=== PATIENT | female | born 1945 | race Hispanic/Latino ===

== ENCOUNTER 2018-11-13 19:57 | Emergency (ER) | payer OTHER, MEDICARE ==
[~2018-11-13 19:57] MED LIST: ENAL20TA PO; ESOM40CA54 PO; FERS325 PO; FLUO-125 PO; GLIP5TAB11 PO; HYDR25TA PO; LOVA10TA2 PO; METO100T14 PO; TRAM50TA4 PO
[2018-11-13] MEDS ORDERED: IBUPROFEN 600 MG TABLET ONE (20:29)
[2018-11-13] MEDS ORDERED: TETANUS/DIPHTHERIA TOXOID [ADULT] 0.5 ML VIAL IM ONE (20:30)
== END 2018-11-13 21:45 | disposition home or self-care (01) ==
LOC: EDH 19:57
DX: S61.313A Laceration without foreign body of left middle finger with damage to nail, initial encounter (principal); E11.9 Type 2 diabetes mellitus without complications; E78.5 Hyperlipidemia, unspecified; I10 Essential (primary) hypertension; W26.0XXA Contact with knife, initial encounter; Y93.G3 Activity, cooking and baking; Y92.89 Other specified places as the place of occurrence of the external cause; Y99.8 Other external cause status
CPT/HCPCS: 73140; 90471; 90714

== ENCOUNTER 2019-10-13 10:51 | Observation (INO) | payer OTHER, MEDICARE ==
[~2019-10-13] VITALS: Ht 152.4 cm; Wt 96.8 kg
[~2019-10-13 10:51] MED LIST changes: -FLUO-125 PO; +FLUO10CA22 PO
[2019-10-13] MEDS ORDERED: ASPIRIN 325 MG TABLET ONE (11:33)
[2019-10-13] MEDS ORDERED: NITROGLYCERIN 1GM/1 INCH PACKET TD ONE (12:19)
[2019-10-13] MEDS ORDERED: FUROSEMIDE 10 MG/ML 4ML VIAL ONE (12:20)
[2019-10-13 12:33] LABS: CREATININE 0.7 mg/dL (0.5-1.5); INR 1.01 (0.85-1.15); PARTIAL THROMBOPLASTIN TIME 28.2 SEC (26.3-35.5); POTASSIUM 3.4 mmol/L (3.5-5.1); PROTHROMBIN TIME 10.6 SEC (9.6-11.6)
[2019-10-13 12:34] LABS: APPEARANCE,URINE Clear (CLEAR); BILIRUBIN,URINE Negative (NEGATIVE); COLOR,URINE Yellow (YELLOW); GLUCOSE, URINE (UA) Negative (NEGATIVE); KETONES,URINE Negative (NEGATIVE); LEUKOCYTE ESTERASE ,URINE Trace (NEGATIVE); NITRATE,URINE Negative (NEGATIVE); OCCULT BLOOD,URINE Negative (NEGATIVE); PH,URINE 7.5 (5.0-8.0); PROTEIN,URINE POS 1+ mg/dL (NEGATIVE); UROBILINOGEN,URINE 0.2 mg/dL (0.2-1.0)
[2019-10-13 12:37] LABS: ALBUMIN 3.3 g/dL (3.5-5.0); BILIRUBIN,TOTAL 0.3 mg/dL (0.2-1.0); TOTAL PROTEIN, SERUM 7.3 g/dL (6.0-8.3)
[2019-10-13 12:50] LABS: B-TYPE NATRIURETIC PEPTIDE 238 pg/mL (0-100)
[2019-10-13 13:01] LABS: BASOPHILS % (AUTO) 0.6 % (0.0-5.0); EOSINOPHILS % (AUTO) 3.4 % (0.0-8.0); HEMATOCRIT 30.5 % (36-48); LYMPHOCYTES % (AUTO) 23.6 % (21.0-51.0); MEAN CORPUSCULAR HEMOGLOBIN 29.9 pg (27.0-33.0); MEAN CORPUSCULAR HGB CONC 31.5 g/dL (32.0-36.0); MONOCYTES % (AUTO) 6.1 % (3.0-13.0); NEUTROPHILS % (AUTO) 65.7 % (40.0-77.0); PLATELET COUNT (AUTO) 208 K/uL (130-400); RED BLOOD CELL COUNT(AUTO) 3.21 MIL/uL (4.00-5.50); RED CELL DISTRIBUTION WIDTH 13.6 % (11.0-15.5); WHITE BLOOD COUNT (AUTO) 8.9 K/uL (4.8-10.8)
[2019-10-13 13:33] LABS: BACTERIA,URINE Rare /HPF (None Seen); RBC,URINE 0-1 /HPF (0-1); WBC,URINE 0-1 /HPF (0-1)
[2019-10-13] MEDS ORDERED: ONDANSETRON HCL 4 MG/2 ML VIAL IVP PRN (15:45)
[2019-10-13] MEDS ORDERED: IPRATROPIUM/ALBUTEROL SULFATE 3 ML SOLUTION IH PRN (15:45)
[2019-10-13] MEDS ORDERED: ZOLPIDEM TARTRATE 5 MG TAB PO PRN (15:45)
[2019-10-13] MEDS ORDERED: LACTULOSE 20 GM/30 ML UDCUP PO PRN (15:45)
[2019-10-13] MEDS ORDERED: ACETAMINOPHEN-CODEINE 300/30MG TAB PO PRN (15:45)
[2019-10-13 16:00] VITALS: BP 173/71
[2019-10-13] MEDS: NITROGLYCERIN 1GM/1 INCH PACKET TD SCH ×3 (16:31→23:25)
[2019-10-13] MEDS: HYDRALAZINE HCL 20 MG/ML VIAL IV PRN (16:34)
[2019-10-13] MEDS: ACETAMINOPHEN-CODEINE 300/30MG TAB PO PRN ×2 (16:36→17:59)
[2019-10-13] MEDS ORDERED: ATOR40TA71 PO (16:51)
[2019-10-13] MEDS ORDERED: GLIP5TAB11 PO (16:51)
[2019-10-13] MEDS ORDERED: PANT40TA25 PO (16:51)
[2019-10-13] MEDS ORDERED: GABA-529 PO (16:51)
[2019-10-13] MEDS ORDERED: LINA290C PO (16:51)
[2019-10-13] MEDS ORDERED: SUCR1TAB2 PO (16:51)
[2019-10-13] MEDS ORDERED: ALEN70TA10 PO (16:51)
[2019-10-13] MEDS ORDERED: NITROGLYCERIN 0.4 MG SL TAB SL ONE (17:47)
--- NOTE | 2019-10-13 18:37 | NUR ---
SPOKE WITH DR. ERVIN ABOUT NEW CONSULT INFORMED MD ABOUT CHEST PAIN EPISODE NOW BETTER AFTER 2 DOSES OF TYLENOL 3. BP ALSO BETTER AFTER HYDRALAZINE IV DOSE. MD ORDERED TO DRAW ANOTHER CARDIAC PANEL AND KEEP PATIENT NPO AFTER MIDNIGHT.
[2019-10-13] MEDS ORDERED: NITROGLYCERIN 0.4 MG SL TAB SL PRN (19:00)
[2019-10-13 19:36] VITALS: BP 159/67
[2019-10-13 19:56] LABS: CREATINE KINASE, TOTAL 108 U/L (21-232); MYOGLOBIN 52 ng/mL (10-92); TROPONIN I < 0.04 ng/mL (0.00-0.06)
[2019-10-13] MEDS: ENALAPRIL MALEATE 10 MG TABLET PO SCH (20:20)
[2019-10-13] MEDS: ATORVASTATIN CALCIUM 10 MG TABLET PO SCH (20:21)
[2019-10-13] MEDS: METOPROLOL TARTRATE 50 MG TAB PO SCH (20:21)
[2019-10-13] MEDS ORDERED: POTASSIUM CHLORIDE 10% ELIXIR 20 MEQ/15 ML UDCUP PO PRN (21:15)
[2019-10-13] MEDS ORDERED: POTASSIUM CHLORIDE 20MEQ/100ML 100 ML IV PRN (21:15)
[2019-10-13] MEDS ORDERED: LIDOCAINE HCL-MPF 1% 2ML VIAL IV PRN (21:15)
[2019-10-13] MEDS: POTASSIUM CHLORIDE 20 MEQ ERTAB PO PRN (21:31)
[2019-10-13 23:55] VITALS: BP 102/45
[2019-10-14 03:46] VITALS: BP 107/44
[2019-10-14 04:17] LABS: HEMATOCRIT 29.6 % (36-48); MEAN CORPUSCULAR HEMOGLOBIN 29.8 pg (27.0-33.0); MEAN CORPUSCULAR HGB CONC 31.8 g/dL (32.0-36.0); PLATELET COUNT (AUTO) 183 K/uL (130-400); RED BLOOD CELL COUNT(AUTO) 3.15 MIL/uL (4.00-5.50); RED CELL DISTRIBUTION WIDTH 13.8 % (11.0-15.5); WHITE BLOOD COUNT (AUTO) 9.6 K/uL (4.8-10.8)
[2019-10-14 04:23] VITALS: BP 147/59
[2019-10-14 04:34] LABS: ALBUMIN 3.2 g/dL (3.5-5.0); BILIRUBIN,TOTAL 0.3 mg/dL (0.2-1.0); CREATININE 0.8 mg/dL (0.5-1.5); MAGNESIUM 1.8 mg/dL (1.80-2.40); PHOSPHORUS 3.1 mg/dL (2.5-4.9)
[2019-10-14 04:46] LABS: POTASSIUM 2.9 mmol/L (3.5-5.1)
[2019-10-14] MEDS: POTASSIUM CHLORIDE 20 MEQ ERTAB PO PRN ×3 (04:51→09:26)
[2019-10-14] MEDS ORDERED: ACETAMINOPHEN 325 MG TAB ONE (05:58)
[2019-10-14] MEDS ORDERED: ACETAMINOPHEN 325 MG TAB PO PRN (06:00)
[2019-10-14 07:39] VITALS: BP 157/62
[2019-10-14] MEDS ORDERED: PANTOPRAZOLE 40 MG/VIAL IVP SCH (09:00)
[2019-10-14] MEDS ORDERED: HYDROCHLOROTHIAZIDE 25 MG TABLET PO SCH (09:00)
[2019-10-14] MEDS: METOPROLOL TARTRATE 50 MG TAB PO SCH ×2 (09:24→20:39)
[2019-10-14] MEDS: FERROUS SULFATE 325 MG TABLET.DR PO SCH (09:25)
[2019-10-14] MEDS: ENALAPRIL MALEATE 10 MG TABLET PO SCH ×2 (09:25→20:39)
[2019-10-14] MEDS ORDERED: PANTOPRAZOLE SODIUM 40 MG TABLET.DR ONE (09:29)
[2019-10-14] MEDS: PANTOPRAZOLE SODIUM 40 MG TABLET.DR PO SCH (09:31)
[2019-10-14] MEDS: ENOXAPARIN SODIUM 30 MG/0.3 ML SQ SCH (10:53)
[2019-10-14 11:46] VITALS: BP 184/75
[2019-10-14] MEDS: HYDRALAZINE HCL 20 MG/ML VIAL IV PRN (12:10)
[2019-10-14] MEDS ORDERED: REGADENOSON 0.4 MG/5 ML PF SYG IVP SCH (13:30)
[2019-10-14 15:32] VITALS: BP 149/55
[2019-10-14] MEDS: FUROSEMIDE 10 MG/ML 4ML VIAL IV SCH (15:33)
[2019-10-14] MEDS: NITROGLYCERIN 1GM/1 INCH PACKET TD SCH ×2 (15:33→23:25)
[2019-10-14 19:22] VITALS: BP 132/67
[2019-10-14] MEDS: ATORVASTATIN CALCIUM 10 MG TABLET PO SCH (20:39)
[2019-10-15] MEDS: FUROSEMIDE 10 MG/ML 4ML VIAL IV SCH (00:38)
[2019-10-15 00:42] VITALS: BP 177/71
[2019-10-15 01:53] VITALS: BP 154/64
[2019-10-15] MEDS: ACETAMINOPHEN-CODEINE 300/30MG TAB PO PRN (03:19)
[2019-10-15 04:27] LABS: HEMATOCRIT 31.5 % (36-48); MEAN CORPUSCULAR HEMOGLOBIN 29.6 pg (27.0-33.0); MEAN CORPUSCULAR HGB CONC 31.4 g/dL (32.0-36.0); PLATELET COUNT (AUTO) 215 K/uL (130-400); RED BLOOD CELL COUNT(AUTO) 3.35 MIL/uL (4.00-5.50); RED CELL DISTRIBUTION WIDTH 13.9 % (11.0-15.5); WHITE BLOOD COUNT (AUTO) 11.1 K/uL (4.8-10.8)
--- NOTE | 2019-10-15 04:31 | NUR ---
Report given to Dimitrios foster. Will transfer patient via stretcher. Patient stable, alert X3. No issues noted.
[2019-10-15 04:50] LABS: CREATININE 0.9 mg/dL (0.5-1.5); MAGNESIUM 1.8 mg/dL (1.80-2.40); PHOSPHORUS 2.6 mg/dL (2.5-4.9); POTASSIUM 3.3 mmol/L (3.5-5.1)
--- NOTE | 2019-10-15 04:50 | NUR ---
transfer from [facility] RECEIVED FROM [facility] PER W/C ACCOMPANIED BY ANH,AAAOX3, DENIES ACUTE PAIN OR DISCOMFORT, ORIENTED TO ROOM,PLAN OF CARE DISCUSSED, VERBALIZES UNDERSTANDING Addendum: 10/15/19 at 0509 by KAITLIN ARNOLD RN RN Amended: Links added.
[2019-10-15 05:10] VITALS: BP 151/60
[2019-10-15] MEDS ORDERED: MAGNESIUM 2GM PREMIX 50ML 50 ML IV PRN (05:15)
[2019-10-15] MEDS: POTASSIUM CHLORIDE 20 MEQ ERTAB PO PRN (05:26)
[2019-10-15 07:58] VITALS: BP 143/50
[2019-10-15] MEDS: PANTOPRAZOLE SODIUM 40 MG TABLET.DR PO SCH (10:27)
[2019-10-15] MEDS: NITROGLYCERIN 1GM/1 INCH PACKET TD SCH (10:28)
[2019-10-15] MEDS: METOPROLOL TARTRATE 50 MG TAB PO SCH (10:28)
[2019-10-15] MEDS: ENALAPRIL MALEATE 10 MG TABLET PO SCH (10:28)
[2019-10-15] MEDS: FERROUS SULFATE 325 MG TABLET.DR PO SCH (10:28)
[2019-10-15] MEDS: ENOXAPARIN SODIUM 30 MG/0.3 ML SQ SCH (10:29)
[2019-10-15 11:04] VITALS: BP 155/76
[2019-10-15] MEDS ORDERED: AMLO5TAB4 PO (12:25)
== END 2019-10-15 12:50 | disposition home or self-care (01) ==
LOC: EDH 10:51 → EDHIP 14:38 → 2DH 15:39 → 3CH 10-15 04:36
PROVIDERS: ADMIT Internal Medicine Critical Care Medicine; ATTEND Internal Medicine Critical Care Medicine
DX: I16.0 Hypertensive urgency (principal); E11.9 Type 2 diabetes mellitus without complications; E78.5 Hyperlipidemia, unspecified; I20.0 Unstable angina; D63.8 Anemia in other chronic diseases classified elsewhere; E66.01 Morbid (severe) obesity due to excess calories; I11.0 Hypertensive heart disease with heart failure; I50.31 Acute diastolic (congestive) heart failure; E44.1 Mild protein-calorie malnutrition; N28.9 Disorder of kidney and ureter, unspecified; Z96.653 Presence of artificial knee joint, bilateral
CPT/HCPCS: 36415 ×3; 71045 ×3; 80048; 80053 ×2; 81001; 82550 ×2; 82948 ×4; 83735 ×2; 83874; 83880; 84100 ×2; 84132; 84484 ×2; 85025; 85027 ×2; 85610; 85730; 93005 ×2; 93306; 94640; 94664; 96365; 96366; 96372 ×2; 96375 ×2; 96376 ×2; 97116; 97161; 99285; G0378 ×23; G8978; G8979; G8980; G8981; G8982; G8983; J0360 ×3; J1650 ×2; J1940 ×3; J2785; J3475; J3480; J3490; C9113

== ENCOUNTER 2022-12-05 13:23 | Emergency (ER) | payer OTHER, MEDICARE ==
[~2022-12-05] VITALS: Ht 154.9 cm; Wt 90.7 kg
[~2022-12-05 13:23] MED LIST changes: +ALEN70TA80 PO; +AMLO5TAB4 PO; +ATOR40TA71 PO; +ENAL-91 PO; -ENAL20TA PO; -FLUO10CA22 PO; +FLUO10CA24 PO; +GABA-529 PO; +LINA290C PO; +PANT40TA54 PO; +SUCR1TAB2 PO
[2022-12-05 13:26] VITALS: BP 179/61
[2022-12-05] MEDS ORDERED: MORPHINE 4 MG SYG IVP ONE (14:00)
[2022-12-05 15:05] LABS: BASOPHILS % (AUTO) 0.2 % (0.0-5.0); EOSINOPHILS % (AUTO) 1.7 % (0.0-8.0); HEMATOCRIT 33.9 % (36-48); LYMPHOCYTES % (AUTO) 17.9 % (21.0-51.0); MEAN CORPUSCULAR HGB CONC 31.6 g/dL (32.0-36.0); MEAN CORPUSCULAR VOLUME 91.9 fL (79-99); MONOCYTES % (AUTO) 6.5 % (3.0-13.0); NEUTROPHILS % (AUTO) 73.3 % (40.0-77.0); PLATELET COUNT (AUTO) 186 K/uL (130-400); RED BLOOD CELL COUNT(AUTO) 3.69 MIL/uL (4.00-5.50); RED CELL DISTRIBUTION WIDTH 14.7 % (11.0-15.5); WHITE BLOOD COUNT (AUTO) 10.2 K/uL (4.8-10.8)
[2022-12-05] MEDS ORDERED: NAPR500T6 PO (15:29)
[2022-12-05 15:33] LABS: CREATININE 0.8 mg/dL (0.5-1.5)
[2022-12-05 15:38] LABS: ALBUMIN 3.2 g/dL (3.5-5.0); TOTAL PROTEIN, SERUM 7.4 g/dL (6.0-8.3)
== END 2022-12-05 15:42 | disposition home or self-care (01) ==
LOC: EDH 13:23
DX: M25.552 Pain in left hip (principal); M79.605 Pain in left leg; I10 Essential (primary) hypertension; E11.9 Type 2 diabetes mellitus without complications; E78.00 Pure hypercholesterolemia, unspecified; Z79.84 Long term (current) use of oral hypoglycemic drugs; Z79.899 Other long term (current) drug therapy
CPT/HCPCS: 99285; 96374; 72192; 80053; 85025; 83605; 36415; 73552; J2270; 96375

== ENCOUNTER → 2023-09-26 | Outpatient (CLI) | payer OTHER, MEDICARE ==
[~2023-09-26] MED LIST changes: -GLIP5TAB11 PO; +GLIP5TAB15 PO; +NAPR500T6 PO
[2023-09-26] MEDS: REGADENOSON 0.4 MG/5 ML PF SYG IVP ONE (14:21)
== END | disposition home or self-care (01) ==
LOC: SHCH 09:00
PROVIDERS: ATTEND Internal Medicine
DX: I48.91 Unspecified atrial fibrillation (principal); R94.31 Abnormal electrocardiogram [ECG] [EKG]; R07.89 Other chest pain
CPT/HCPCS: 78452; 96374; 93017; J2785; A9500 ×2

== ENCOUNTER 2023-11-17 15:16 | Emergency (ER) | payer OTHER, MEDICARE ==
[~2023-11-17] VITALS: Ht 152.4 cm; Wt 89.8 kg
[2023-11-17] MEDS: METOCLOPRAMIDE 10 MG/2 ML VIAL IVP ONE (15:57)
[2023-11-17] MEDS: MORPHINE 2 MG SYG IVP ONE (15:58)
[2023-11-17 17:00] LABS: HEMATOCRIT 34.4 % (36-48); MEAN CORPUSCULAR HEMOGLOBIN 28.2 pg (27.0-33.0); MEAN CORPUSCULAR HGB CONC 31.7 g/dL (32.0-36.0); MEAN CORPUSCULAR VOLUME 88.9 fL (79-99); RED BLOOD CELL COUNT(AUTO) 3.87 MIL/uL (4.00-5.50); RED CELL DISTRIBUTION WIDTH 16.5 % (11.0-15.5); WHITE BLOOD COUNT (AUTO) 9.5 K/uL (4.8-10.8)
[2023-11-17 17:12] LABS: CREATININE 0.9 mg/dL (0.5-1.0); POTASSIUM 3.2 mmol/L (3.5-5.1)
[2023-11-17 17:51] LABS: MAGNESIUM 1.8 mg/dL (1.80-2.40); THYROID STIMULATING HORMONE 1.97 uIU/mL (0.36-3.74)
[2023-11-17 18:34] VITALS: BP 178/65; PULSE 70; RESP 16; O2SAT 99
== END 2023-11-17 20:00 | disposition home or self-care (01) ==
LOC: EDH 15:16
DX: R51.9 Headache, unspecified (principal); I10 Essential (primary) hypertension; E11.9 Type 2 diabetes mellitus without complications; E78.00 Pure hypercholesterolemia, unspecified; I48.91 Unspecified atrial fibrillation; Z79.899 Other long term (current) drug therapy; Z98.890 Other specified postprocedural states
CPT/HCPCS: 99285; 70450; 96374; 71045; 96375; 84443; 83735; 80048; 85027; 36415; 73562; 72170; 72125; J2270; J2765

== ENCOUNTER 2023-12-09 10:27 | Day surgery (SDC) | payer OTHER, MEDICARE ==
[~2023-12-09] VITALS: Ht 152.4 cm; Wt 93.4 kg
[2023-12-09 11:22] VITALS: BP 159/77; PULSE 78; RESP 14
[2023-12-09] MEDS ORDERED: METOCLOPRAMIDE 10 MG/2 ML VIAL ONE (11:49)
[2023-12-09] MEDS ORDERED: VALS80TA30 PO (11:54)
[2023-12-09] MEDS ORDERED: ERGO500093 PO (11:54)
[2023-12-09] MEDS ORDERED: METO-408 PO (11:54)
[2023-12-09] MEDS ORDERED: FLUO40CA7 PO (11:54)
[2023-12-09] MEDS ORDERED: FAMO40TA7 PO (11:54)
[2023-12-09] MEDS ORDERED: FURO20TA4 PO (11:54)
[2023-12-09] MEDS ORDERED: GLIP5TAB15 PO (11:54)
[2023-12-09] MEDS: 0.9%NACL 1000ML 1,000 ML IV ONE (11:56)
[2023-12-09] MEDS ORDERED: PROPOFOL 10 MG/ML 20ML VIAL IV ONE (12:56)
== END 2023-12-09 14:30 | disposition home or self-care (01) ==
LOC: DAH 10:27 → ENDO 10:27
PROVIDERS: ATTEND Internal Medicine Gastroenterology
DX: K92.1 Melena (principal); R10.13 Epigastric pain; K57.30 Diverticulosis of large intestine without perforation or abscess without bleeding; K29.70 Gastritis, unspecified, without bleeding; K44.9 Diaphragmatic hernia without obstruction or gangrene; K22.89 Other specified disease of esophagus; K21.9 Gastro-esophageal reflux disease without esophagitis; K59.04 Chronic idiopathic constipation; K76.0 Fatty (change of) liver, not elsewhere classified; R10.30 Lower abdominal pain, unspecified; E66.9 Obesity, unspecified; I10 Essential (primary) hypertension; E11.9 Type 2 diabetes mellitus without complications; F32.A Depression, unspecified; M81.0 Age-related osteoporosis without current pathological fracture; F41.9 Anxiety disorder, unspecified; E78.5 Hyperlipidemia, unspecified; I25.10 Atherosclerotic heart disease of native coronary artery without angina pectoris; Z86.73 Personal history of transient ischemic attack (TIA), and cerebral infarction without residual deficits; Z90.49 Acquired absence of other specified parts of digestive tract; Z98.891 History of uterine scar from previous surgery; Z98.890 Other specified postprocedural states; Z86.010 Personal history of colon polyps; Z68.41 Body mass index [BMI] 40.0-44.9, adult; Z79.899 Other long term (current) drug therapy; Z79.01 Long term (current) use of anticoagulants
CPT/HCPCS: 82948 ×2; 43239; 45385; J7030 ×2; J2704; J2765; A4620; A4215 ×2; A4223; A7002; A4222; A4221; A4663; A4606; J3490

== ENCOUNTER 2023-12-13 20:55 | Emergency (ER) | payer OTHER, MEDICARE ==
[~2023-12-13] VITALS: Ht 152.4 cm; Wt 86.2 kg
[~2023-12-13 20:55] MED LIST changes: -ALEN70TA80 PO; -AMLO5TAB4 PO; -ENAL-91 PO; +ERGO500093 PO; -ESOM40CA54 PO; +FAMO40TA7 PO; -FLUO10CA24 PO; +FLUO40CA7 PO; +FURO20TA4 PO; -GABA-529 PO; -HYDR25TA PO; -LINA290C PO; -LOVA10TA2 PO; +METO-408 PO; -METO100T14 PO; -NAPR500T6 PO; -SUCR1TAB2 PO; -TRAM50TA4 PO; +VALS80TA30 PO
[2023-12-13 21:40] LABS: BASOPHILS # (AUTO) 0.04 K/uL (0.00-0.20); BASOPHILS % (AUTO) 0.4 % (0.0-5.0); EOSINOPHILS # (AUTO) 0.15 K/uL (0.00-0.70); EOSINOPHILS % (AUTO) 1.5 % (0.0-8.0); HEMATOCRIT 36.2 % (36-48); IMMATURE GRANULOCYTE ABSOLUTE 0.04 K/uL (0-1); LYMPHOCYTES # (AUTO) 1.3 K/uL (1.0-4.8); MEAN CORPUSCULAR HEMOGLOBIN 28.2 pg (27.0-33.0); MEAN CORPUSCULAR HGB CONC 31.8 g/dL (32.0-36.0); MEAN CORPUSCULAR VOLUME 88.7 fL (79-99); MONOCYTES # (AUTO) 0.6 K/uL (0.1-1.0); MONOCYTES % (AUTO) 5.9 % (3.0-13.0); NEUTROPHILS # (AUTO) 8.1 K/uL (1.8-7.7); NEUTROPHILS % (AUTO) 78.8 % (40.0-77.0); PLATELET COUNT (AUTO) 230 K/uL (130-400); RED BLOOD CELL COUNT(AUTO) 4.08 MIL/uL (4.00-5.50); RED CELL DISTRIBUTION WIDTH 16.3 % (11.0-15.5); WHITE BLOOD COUNT (AUTO) 10.3 K/uL (4.8-10.8)
[2023-12-13 21:56] LABS: BILIRUBIN,TOTAL 0.3 mg/dL (0.2-1.0); CREATININE 0.8 mg/dL (0.5-1.0); TOTAL PROTEIN, SERUM 7.1 g/dL (6.0-8.3)
[2023-12-13 21:58] LABS: POTASSIUM 2.5 mmol/L (3.5-5.1)
[2023-12-13] MEDS ORDERED: MELO10CA3 PO (22:16)
[2023-12-13] MEDS: POTASSIUM BICARB/CIT AC 25 MEQ TABLET.EFF PO ONE (22:28)
[2023-12-13] MEDS: HYDRALAZINE 20MG/ML VIAL IV ONE (22:44)
[2023-12-13 22:51] LABS: SARS-CoV-2, RNA, NAAT NEGATIVE SARS CoV-2 (NEGATIVE)
[2023-12-13 22:52] LABS: INFLUENZA TYPE A NEGATIVE FOR TYPE A (NEG)
[2023-12-13 22:53] LABS: INFLUENZA TYPE B NEGATIVE FOR TYPE B (NEG)
[2023-12-14] MEDS: HYDROCODONE/ACETAMINOPHEN 5/325 MG TAB PO ONE (00:01)
[2023-12-14 03:57] VITALS: BP 143/54; PULSE 68; RESP 16; O2SAT 97
[2023-12-14 06:38] LABS: APPEARANCE,URINE CLOUDY (CLEAR); BILIRUBIN,URINE NEGATIVE (NEGATIVE); COLOR,URINE YELLOW (YELLOW); GLUCOSE, URINE (UA) NEGATIVE (NEGATIVE); KETONES,URINE 5 mg/dL (NEGATIVE); LEUKOCYTE ESTERASE ,URINE 75 Leu/uL (NEGATIVE); NITRATE,URINE NEGATIVE (NEGATIVE); OCCULT BLOOD,URINE NEGATIVE (NEGATIVE); PH,URINE 6.5 (5.0-8.0); PROTEIN,URINE 70 mg/dL (NEGATIVE); UROBILINOGEN,URINE 3 mg/dL (0.2-1.0)
[2023-12-14 06:45] LABS: ADD UA MICROSCOPIC YES
[2023-12-14 06:48] LABS: BACTERIA,URINE MOD /HPF (None Seen); MUCUS,URINE FEW LPF (None Seen); SQUAMOUS EPITHELIAL CELL,UR RARE /HPF (0-2)
== END 2023-12-14 08:00 | disposition home or self-care (01) ==
LOC: EDH 20:55
DX: M79.601 Pain in right arm (principal); E87.6 Hypokalemia; I10 Essential (primary) hypertension; E11.9 Type 2 diabetes mellitus without complications; I48.91 Unspecified atrial fibrillation; Z79.1 Long term (current) use of non-steroidal anti-inflammatories (NSAID); Z79.84 Long term (current) use of oral hypoglycemic drugs; Z79.899 Other long term (current) drug therapy; Z20.822 Contact with and (suspected) exposure to COVID-19
CPT/HCPCS: 99285; 96374; 70450; 87635; 80053; 85025; 87077; 87088; 87186; 87804 ×2; 81001; 36415; 73100; 73090; 73060; J0360

== ENCOUNTER → 2024-05-08 | Outpatient (CLI) | payer OTHER, MEDICARE ==
[~2024-05-08] MED LIST changes: +DOCU100C33 PO; +FERR-72 PO; +MELO10CA3 PO; +TIMO1DRO2 OP; +VALS40TA11 PO
== END | disposition home or self-care (01) ==
LOC: RAH 08:39
PROVIDERS: ATTEND Internal Medicine
DX: M85.89 Other specified disorders of bone density and structure, multiple sites (principal); M81.0 Age-related osteoporosis without current pathological fracture
CPT/HCPCS: 77080

== ENCOUNTER 2024-05-09 17:33 | Observation (INO) | payer OTHER, MEDICARE ==
[~2024-05-09] VITALS: Ht 152.4 cm; Wt 89.9 kg
[~2024-05-09 17:33] MED LIST changes: -DOCU100C33 PO; -FERR-72 PO; -TIMO1DRO2 OP; -VALS40TA11 PO
[2024-05-09 18:27] LABS: BASOPHILS # (AUTO) 0.04 K/uL (0.00-0.20); BASOPHILS % (AUTO) 0.4 % (0.0-5.0); EOSINOPHILS # (AUTO) 0.22 K/uL (0.00-0.70); HEMATOCRIT 38.5 % (36-48); IMMATURE GRANULOCYTE ABSOLUTE 0.04 K/uL (0-1); LYMPHOCYTES # (AUTO) 1.1 K/uL (1.0-4.8); LYMPHOCYTES % (AUTO) 10.1 % (21.0-51.0); MEAN CORPUSCULAR HEMOGLOBIN 30.5 pg (27.0-33.0); MEAN CORPUSCULAR HGB CONC 32.2 g/dL (32.0-36.0); MEAN CORPUSCULAR VOLUME 94.6 fL (79-99); MONOCYTES # (AUTO) 0.6 K/uL (0.1-1.0); MONOCYTES % (AUTO) 5.2 % (3.0-13.0); NEUTROPHILS # (AUTO) 8.9 K/uL (1.8-7.7); NEUTROPHILS % (AUTO) 81.9 % (40.0-77.0); PLATELET COUNT (AUTO) 206 K/uL (130-400); RED BLOOD CELL COUNT(AUTO) 4.07 MIL/uL (4.00-5.50); RED CELL DISTRIBUTION WIDTH 13.7 % (11.0-15.5); WHITE BLOOD COUNT (AUTO) 10.9 K/uL (4.8-10.8)
[2024-05-09 18:38] LABS: CREATININE 0.9 mg/dL (0.5-1.0); INR 1.06 (0.85-1.15); POTASSIUM 3.5 mmol/L (3.5-5.1); PROTHROMBIN TIME 11.4 SEC (9.6-11.6)
[2024-05-09 18:39] LABS: PARTIAL THROMBOPLASTIN TIME 30.5 SEC (26.3-35.5)
[2024-05-09 18:45] LABS: ALBUMIN 3.3 g/dL (3.5-5.0); BILIRUBIN,DIRECT 0.1 mg/dL (0.0-0.3); BILIRUBIN,TOTAL 0.4 mg/dL (0.2-1.0); MAGNESIUM 1.7 mg/dL (1.80-2.40); TOTAL PROTEIN, SERUM 6.9 g/dL (6.0-8.3)
[2024-05-09 18:48] LABS: COVID19 (SARS ANTIGEN RAPID) PRESUMPTIVE NEGATIVE (NEGATIVE); INFLUENZA TYPE A Negative For Type A (NEGATIVE); INFLUENZA TYPE B Negative For Type B (NEGATIVE)
[2024-05-09] MEDS: acetaMINOPHEN 325 MG TAB PO ONE (18:49)
[2024-05-09] MEDS: ASPIRIN 325MG TAB PO ONE (18:49)
[2024-05-09 18:51] LABS: APPEARANCE,URINE CLOUDY (CLEAR); BILIRUBIN,URINE NEGATIVE (NEGATIVE); COLOR,URINE YELLOW (YELLOW); GLUCOSE, URINE (UA) NEGATIVE (NEGATIVE); KETONES,URINE NEGATIVE (NEGATIVE); LEUKOCYTE ESTERASE ,URINE 500 Leu/uL (NEGATIVE); NITRATE,URINE 2+ (NEGATIVE); OCCULT BLOOD,URINE SMALL (NEGATIVE); PH,URINE 5.5 (5.0-8.0); PROTEIN,URINE 100 mg/dL (NEGATIVE); UROBILINOGEN,URINE 0.2 mg/dL (0.2-1.0)
[2024-05-09 18:58] LABS: B-TYPE NATRIURETIC PEPTIDE 139 pg/mL (0-100)
[2024-05-09 19:11] LABS: ADD UA MICROSCOPIC YES
[2024-05-09 19:13] LABS: BACTERIA,URINE MOD /HPF (None Seen); MUCUS,URINE RARE LPF (None Seen); SQUAMOUS EPITHELIAL CELL,UR FEW /HPF (0-2); UNCLASSIFIED CRYSTAL 1 /HPF (None Seen)
[2024-05-09] MEDS: cefTRIAXone 1G VIAL IVPB ONE (20:29)
[2024-05-09] MEDS: MAGNESIUM 2GM PREMIX 50ML 50 ML IV SCH (20:46)
[2024-05-09] MEDS ORDERED: LAbetaLOL 20MG SYG IV PRN (21:30)
[2024-05-09] MEDS ORDERED: acetaMINOPHEN 650 MG SUPPOSITORY RC PRN (21:30)
[2024-05-09] MEDS ORDERED: HYDROcodone/APAP 5/325 1 TAB TABLET PO PRN (21:30)
[2024-05-09] MEDS ORDERED: ondanSETRON 4MG INJ IVP PRN (21:30)
[2024-05-09] MEDS ORDERED: hydrALAZine 20MG/ML VIAL IV PRN (21:30)
[2024-05-10] MEDS: furoSEMIDE 40MG VIAL IV SCH (00:04)
[2024-05-10] MEDS: ENOXAPARIN SODIUM 40 MG/0.4 ML SYRINGE SQ SCH (00:05)
[2024-05-10] MEDS: acetaMINOPHEN 325 MG TAB PO PRN (05:39)
[2024-05-10] MEDS ORDERED: FERR-72 PO (06:13)
[2024-05-10] MEDS ORDERED: VALS40TA11 PO (06:16)
[2024-05-10] MEDS ORDERED: DOCU100C33 PO (06:26)
[2024-05-10] MEDS ORDERED: TIMO1DRO2 OP (06:29)
[2024-05-10] MEDS ORDERED: PoTASSium chloRIDE 20MEQ/100ML 100 ML IV PRN (06:30)
[2024-05-10] MEDS ORDERED: DEXTROSE 50%-WATER 50 ML DISP.SYRIN IV PRN (06:30)
[2024-05-10] MEDS ORDERED: GLUCAGON 1MG KIT 1 MG ML IM PRN (06:30)
[2024-05-10 06:51] LABS: BASOPHILS # (AUTO) 0.04 K/uL (0.00-0.20); BASOPHILS % (AUTO) 0.5 % (0.0-5.0); EOSINOPHILS # (AUTO) 0.23 K/uL (0.00-0.70); EOSINOPHILS % (AUTO) 2.8 % (0.0-8.0); IMMATURE GRANULOCYTE ABSOLUTE 0.03 K/uL (0-1); LYMPHOCYTES # (AUTO) 1.2 K/uL (1.0-4.8); LYMPHOCYTES % (AUTO) 14.4 % (21.0-51.0); MEAN CORPUSCULAR HEMOGLOBIN 30.5 pg (27.0-33.0); MEAN CORPUSCULAR VOLUME 92.5 fL (79-99); MONOCYTES # (AUTO) 0.6 K/uL (0.1-1.0); MONOCYTES % (AUTO) 7.7 % (3.0-13.0); NEUTROPHILS % (AUTO) 74.2 % (40.0-77.0); PLATELET COUNT (AUTO) 212 K/uL (130-400); RED CELL DISTRIBUTION WIDTH 13.7 % (11.0-15.5); WHITE BLOOD COUNT (AUTO) 8.1 K/uL (4.8-10.8)
[2024-05-10] MEDS: INSULIN humuLIN R 100 UNIT/ML 3ML SQ SCH ×2 (07:30)
[2024-05-10 08:43] LABS: PHOSPHORUS 3.7 mg/dL (2.5-4.9); THYROID STIMULATING HORMONE 1.14 uIU/mL (0.36-3.74)
[2024-05-10] MEDS ORDERED: cefTRIAXone 1G VIAL IVPB SCH (09:00)
[2024-05-10] MEDS: FAMOTIDINE 20MG VIAL IV SCH (10:41)
[2024-05-10] MEDS: PoTASSium chloRIDE 20MEQ ER 20 MEQ ERTAB PO PRN (10:41)
[2024-05-10] MEDS: PoTASSium chl 10% ELIXIR 20MEQ 20 MEQ/15 ML UDCUP PO PRN (13:20)
[2024-05-10 15:50] VITALS: BP 156/74; PULSE 85; RESP 18; TEMP 98.1
[2024-05-10 16:29] VITALS: BP 156/74; PULSE 85; RESP 18; TEMP 98.1
[2024-05-10 17:58] VITALS: O2SAT 97
[2024-05-10 20:00] VITALS: BP 124/57; PULSE 82; RESP 20; TEMP 98.1
[2024-05-10 21:00] VITALS: O2SAT 95
[2024-05-10] MEDS: TEMAZepam 15 MG CAPSULE PO PRN (21:10)
[2024-05-10] MEDS: cefTRIAXone 1G VIAL IVPB SCH (21:10)
[2024-05-10] MEDS: MAGNESIUM 2GM PREMIX 50ML 50 ML IV PRN (22:35)
[2024-05-11] VITALS: BP 131/65; PULSE 81; RESP 20; TEMP 98.4
[2024-05-11 04:00] VITALS: BP 137/68; PULSE 81; RESP 18; TEMP 98.3
[2024-05-11 06:06] LABS: HEMATOCRIT 38.6 % (36-48); MEAN CORPUSCULAR HGB CONC 31.3 g/dL (32.0-36.0); MEAN CORPUSCULAR VOLUME 95.8 fL (79-99); RED BLOOD CELL COUNT(AUTO) 4.03 MIL/uL (4.00-5.50); RED CELL DISTRIBUTION WIDTH 13.6 % (11.0-15.5); WHITE BLOOD COUNT (AUTO) 6.4 K/uL (4.8-10.8)
[2024-05-11 06:09] LABS: CREATININE 0.9 mg/dL (0.5-1.0); POTASSIUM 3.6 mmol/L (3.5-5.1)
[2024-05-11 08:00] VITALS: BP 130/63; PULSE 93; RESP 18; TEMP 98.2; O2SAT 95
[2024-05-11] MEDS: FLUoxetine HCL 20 MG CAPSULE PO ONE (10:50)
[2024-05-11] MEDS: FAMOTIDINE 20MG TAB PO ONE (10:50)
[2024-05-11] MEDS ORDERED: LEVO750T39 PO (11:33)
[2024-05-12] MEDS ORDERED: FLUoxetine HCL 20 MG CAPSULE PO SCH (09:00)
[2024-05-12] MEDS ORDERED: FAMOTIDINE 20MG TAB PO SCH (09:00)
== END 2024-05-11 13:20 | disposition home or self-care (01) ==
LOC: EDH 17:33 → EDHIP 21:13 → 3BH 05-10 14:21
PROVIDERS: ADMIT Internal Medicine Critical Care Medicine; ATTEND Internal Medicine Critical Care Medicine
DX: N30.00 Acute cystitis without hematuria (principal); Z20.822 Contact with and (suspected) exposure to COVID-19; K52.9 Noninfective gastroenteritis and colitis, unspecified; R07.89 Other chest pain; I11.0 Hypertensive heart disease with heart failure; I50.32 Chronic diastolic (congestive) heart failure; E11.65 Type 2 diabetes mellitus with hyperglycemia; E66.01 Morbid (severe) obesity due to excess calories; K21.9 Gastro-esophageal reflux disease without esophagitis; D72.829 Elevated white blood cell count, unspecified; E78.00 Pure hypercholesterolemia, unspecified; I48.91 Unspecified atrial fibrillation; E83.42 Hypomagnesemia; J40 Bronchitis, not specified as acute or chronic; F32.A Depression, unspecified; Z68.39 Body mass index [BMI] 39.0-39.9, adult; Z79.899 Other long term (current) drug therapy
CPT/HCPCS: 96365; 96366 ×2; 96367; 99285; 80076; 83735 ×3; 84484 ×2; 80048 ×3; 83880; 83690; 85025 ×2; 85610; 85730; 87086 ×2; 87186; 87804 ×2; 87426; 81001; 36415 ×3; 71045; 93005 ×2; 96372 ×2; 96375; 84443; 84100; 82948 ×7; 85027; G0378 ×40; J3475 ×2; J0696 ×2; J3490; J1650 ×3; J1940; 96376

== ENCOUNTER 2024-06-30 10:20 | Emergency (ER) | payer OTHER, MEDICARE ==
[~2024-06-30] VITALS: Ht 167.6 cm; Wt 113.4 kg
[~2024-06-30 10:20] MED LIST changes: +AMOX1TAB16 PO; +DOCU100C33 PO; -ERGO500093 PO; +FERR-72 PO; -FERS325 PO; -FLUO40CA7 PO; -MELO10CA3 PO; +PRED20TA3 PO; +TIMO1DRO2 OP; +VALS40TA11 PO; -VALS80TA30 PO
--- NOTE | 2024-06-30 10:30 | ERN ---
ED Note History of Present Illness Stated Complaint: HIP PAIN Chief Complaint: Hip Pain/Injury Time Seen by MD: 10:23 Dictation: PATIENT IS A 78-YEAR-OLD FEMALE COMING IN TODAY VIA EMS WITH COMPLAINTS OF NON TRAUMA LEFT LATERAL HIP PAIN ONSET THIS MORNING. SHE DENIES ANY HISTORY OF GOUT PRIOR SURGERIES TO THE SAME HIP NO SHORTENING OR ROTATION NOTED. SHE HAS TAKEN NOTHING PRIOR TO ARRIVAL FOR PAIN. NO CALF PAIN NO SWELLING NO SHORTNESS A BREATH. SHE DENIES FEVER CHILLS Allergies: Coded Allergies: No Known Allergies (Unverified Allergy, Unknown, 06/05/17) Home Meds Active Scripts Acetaminophen with Codeine (Acetaminophen-Cod #3 Tablet) 300 Mg-30 Mg Tablet, 1 TAB PO Q4H PRN for SEVERE PAIN, #10 TAB 0 Refills Prov:MARY KATE HSU NP 06/30/24 Methylprednisolone (Medrol) 4 Mg Tab.ds.pk, 1 TAB PO AD for 6 Days, #21 TAB 0 Refills 6 on day 1 then reduce by one tablet daily until gone Prov:MARY KATE HSU NP 06/30/24 Prednisone (Prednisone) 20 Mg Tablet, 1 TAB PO DAILY for 5 Days, #5 TAB 0 Refills Prov:LE STANTON 06/29/24 Amoxicillin/Potassium Clav (Amox Tr-K Clv 875-125 mg Tab) 875 Mg-125 Mg Tablet, 1 TAB PO BID for 5 Days, #10 TAB 0 Refills Prov:LE STANTON 06/29/24 Reported Medications Timolol Maleate/Pf (Timoptic 0.5% Ocudose Drop) 0.5 % Droperette, 1 EACH OP DAILY, DROP 05/10/24 Docusate Sodium (Docusate Sodium) 100 Mg Capsule, 100 MG PO BID, CAP 05/10/24 Valsartan (Valsartan) 40 Mg Tablet, 40 MG PO DAILY, TAB 05/10/24 Ferrous Sulfate (Ferrous Sulfate) 325 Mg (65 Mg Iron) Tablet, 325 MG PO QMOWEFR, TAB 05/10/24 Furosemide (Furosemide) 20 Mg Tablet, 20 MG PO DAILY, TAB 12/09/23 Glipizide (Glipizide) 5 Mg Tablet, 2.5 MG PO DAILY, TAB 12/09/23 Metoprolol Succinate (Metoprolol Succinate) 25 Mg Tab.er.24h, 25 MG PO BID, TAB 12/09/23 Famotidine (Famotidine) 40 Mg Tablet, 40 MG PO DAILY, TAB 12/09/23 Atorvastatin Calcium (Atorvastatin Calcium) 40 Mg Tablet, 40 MG PO DAILY, TAB 10/13/19 Pantoprazole Sodium (Pantoprazole Sodium) 40 Mg Tablet.dr, 40 MG PO ACBKFST, TAB 10/13/19 Discontinued Reported Medications Fluoxetine HCl (Prozac) 40 Mg Capsule, 40 MG PO DAILY, CAP 12/09/23 Discontinued Scripts Levofloxacin (Levofloxacin) 750 Mg Tablet, 750 MG PO DAILY for 7 Days, #7 TAB Prov:CHANTAL WHEAT [employer]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 05/11/24 Past Medical History Past Medical History: Hypertension Surgical History: Other Surgical History Other: BILATERAL KNEES PSYCH History: no pertinent psych hx Social History: Negative History: Not Applicable RN Note Reviewed/Agreed w/PFSH: Yes Review of System Dictation CONSTITUTIONAL: NEGATIVE EXCEPT FOR HPI HEAD/FACE: NEGATIVE EXCEPT FOR HPI EENT: NEGATIVE EXCEPT FOR HPI RESPIRATORY: NEGATIVE EXCEPT FOR HPI GASTROINTESTINAL/ABDOMINAL: NEGATIVE EXCEPT FOR HPI GENITOURINARY: NEGATIVE EXCEPT FOR HPI MUSCULOSKELETAL: NEGATIVE EXCEPT FOR HPI LEFT HIP PAIN INTEGUMENTARY: NEGATIVE EXCEPT FOR HPI NEUROLOGICAL/PSYCH: NEGATIVE EXCEPT FOR HPI HEMATOLOGIC/LYMPHATIC: NEGATIVE EXCEPT FOR HPI ALL SYSTEMS NEGATIVE, EXCEPT NOTED ABOVE. 13 POINT REVIEW OF SYSTEMS ASSESSED AND ALL NEGATIVE EXCEPT FOR ABOVE. Initial Vital Sign VS Vital Signs Date Time Temp Pulse Resp B/P (MAP) Pulse Ox O2 Delivery O2 Flow Rate FiO2 06/30/24 10:23 98.4 66 18 128/76 98 Room Air 0 06/30/24 10:45 21 Physical Exam Dictation VITAL SIGNS REVIEWED GENERAL APPEARANCE: ALERT, ORIENTED X 3, NO ACUTE DISTRESS, WELL DEVELOPED, NOURISHED. HEAD AND FACE: NON-TRAUMATIC. EYES: PERRL, PINK CONJUNCTIVAS, EYELID NO TRAUMA, ANTERIOR CHAMBER WITH ARCUS SENILIS. EARS: PINNAS INTACT AND NO SIGNS OF TRAUMA OR ERYTHEMA EAR CANALS CLEAR AND NO DISCHARGE TM NO ERYTHEMA NOSE: NO DISCHARGE, NO BLEEDING. OROPHARYNX: MOUTH NORMAL, TONGUE PINK, PHARYNX CLEAR,NO ERYTHEMA, TONSILS NO EXUDATES, NO ABSCESSES NOTED, MUCOUS MEMBRANE MOIST NECK: SUPPLE, NON-TENDER, NO THYROMEGALY, NO MASSES, NO JVD, NO BRUITS BREAST:DEFERRED CHEST:NO TENDERNESS, NO CREPITUS, NO PARADOXICAL MOVEMENT, NO RETRACTIONS LUNGS:CLEAR, WELL-VENTILATED, SYMMETRIC, NO RALES, NO WHEEZING, NO RHONCHI, NO STRIDOR, GOOD BREATH SOUNDS BILATERALLY HEART: REGULAR RATE, REGULAR RHYTHM, NO MURMUR, NO GALLOPS VASCULAR: NO PERIPHERAL EDEMA, ABDOMEN: SOFT, POSITIVE BOWEL SOUNDS, NONDISTENDED, NO GUARDING, NONTENDER, NO REBOUND, NO MASSES NO HEPATOMEGALY, NO SPLENOMEGALY, NO MARSHALL'S SIGN, NO HERNIAS. RECTAL: DEFERRED GENITAL: DEFERRED NEUROLOGICAL: NORMAL SPEECH, MOTOR FUNCTION INTACT, SENSORY FUNCTION INTACT MUSCULOSKELETAL: NECK NONTENDER, FULL RANGE OF MOTION, BACK NONTENDER, FULL RANGE OF MOTION, EXTREMITIES: TENDERNESS TO LEFT ANTEROLATERAL HIP. NO SHORTENING OR ROTATION NOTED. SKIN: COLOR PINK, DRY, NO TURGOR, NO RASH, NO LACERATIONS, NO ABRASIONS, NO CONTUSIONS. LYMPHATIC: DEFERRED Results (Laboratory/Radiology) Laboratory/Radiology 1138, LEFT HIP X-RAY WITH DJD CHANGES NOTED ONLY Labs Reviewed?: Yes ED Course ED Course Orders Procedure Category Date Status Time Hip Unilat 2-3vw Left RAD 06/30/24 Resulted 10:25 Acetaminophen With PHA 06/30/24 Complete Codeine (Tylenol-Code 10:30 Ketorolac 60mg/2ml PHA 06/30/24 Complete (Toradol 60mg/2ml) 10:30 Current Medications Medications (Trade) Dose Ordered Sig/Magui Route PRN Reason Start Time Stop Time Status Last Admin Dose Admin Acetaminophen/ Codeine Phosphate (TYLenol-coDEINE TAB) 2 tab ONCE ONCE PO 06/30/24 10:30 06/30/24 10:31 DC 06/30/24 11:13 Ketorolac Tromethamine (toRADol 60MG/ 2ML) 30 mg ONCE ONCE IM 06/30/24 10:30 06/30/24 10:31 DC 06/30/24 11:13 Vital Signs Date Time Temp Pulse Resp B/P (MAP) Pulse Ox O2 Delivery O2 Flow Rate FiO2 06/30/24 11:58 98.2 86 16 138/73 98 Room Air* 0 21 06/30/24 10:45 98.2 86 16 138/73 98 Room Air* 0 21 06/30/24 10:23 98.4 66 18 128/76 98 Room Air 0 1138, PAIN IS IMPROVED AFTER TREATMENT. 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 X-RAY IS NEGATIVE EXCEPT FOR DEGENERATIVE CHANGES. PATIENT DISCHARGED HOME WITH MEDROL DOSEPAK AND TOLD TO SEE HER DOCTOR IN 1-2 DAYS. 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 Take medications as directed here in the emergency room. Okay to continue home medications unless otherwise discussed during your visit in the emergency room today. Return to your nearest emergency room if symptoms worsen or if there is no improvement. Call 911 if you need immediate assistance. Take Tylenol or Motrin [id number] as needed and if no contraindications are present. Increase oral hydration. A wound culture or urine culture was ordered here in the emergency room department please follow-up with primary care provider and advise them to get repeat ports from our facility. If you had any Ganga wrap/splints that were applied here, please do not remove them until you see your primary care or specialty. Take Medrol Dosepak as directed until gone. , see your primary care doctor for follow up in 1-2 days. Activity as tolerated. Referrals: VENITA WEISS MD (PCP) Time of Disposition: 11:38 ATTESTATION BY PHYSICIAN I PERFORMED THE SUBSTANTIVE PORTION OF THE VISIT. I HAVE REVIEWED AND PERSONAL LY MADE AND APPROVED THE MANAGEMENT PLAN THAT IS DOCUMENTED IN THE NOTE BY MYSELF FOR THE A PP. I ACKNOWLEDGED FOR RESPONSIBILITY FOR THE PATIENT'S MANAGEMENT PLAN. I have reviewed the case, and I agree with, Diagnosis and Plan MARY KATE HSU NP Jun 30, 2024 10:30 DECLAN DONAHUE MD Jun 30, 2024 18:09
[2024-06-30] MEDS: acetaMINOPHEN WITH coDEINE 1 TAB TAB PO ONE (11:13)
[2024-06-30] MEDS: ketOROlac 60 MG VIAL (30MG/ML) IM ONE (11:13)
--- NOTE | 2024-06-30 11:13 | NUR ---
PATIENT DECLINED PARTIAL DOSE OF MEDICATION. 1 TAB RETURNED TO [facility] Addendum: 06/30/24 at 1510 by MARIA E PATIENT DECLINED PARTIAL DOSE OF MEDICATION. 1 TAB REMOVED FROM JOSE JUAN
--- NOTE | 2024-06-30 11:38 | HMCIMG ---
LEFT HIP, INCLUDING AP PELVIS, RADIOGRAPHS - 2 VIEWS INDICATION: Pain COMPARISON: None FINDINGS: No acute fracture or subluxation identified. Both femoral heads are well formed without osteochondral erosion or radiographic evidence for avascular necrosis. No radiopaque foreign body noted. IMPRESSION: No evidence for fracture or dislocation.
[2024-06-30] MEDS ORDERED: METH4TAB3 PO (11:39)
[2024-06-30] MEDS ORDERED: ACET-2079 PO (11:39)
[2024-06-30 11:58] VITALS: BP 138/73; PULSE 86; RESP 16; TEMP 98.2; O2SAT 98
--- NOTE | 2024-06-30 12:02 | NUR ---
PATIENT CURRENTLY WAITING FOR TRANSPORTATION
== END 2024-06-30 12:29 | disposition home or self-care (01) ==
LOC: EDH 10:20
DX: M25.552 Pain in left hip (principal); M16.12 Unilateral primary osteoarthritis, left hip; I10 Essential (primary) hypertension; Z79.52 Long term (current) use of systemic steroids; Z79.84 Long term (current) use of oral hypoglycemic drugs; Z79.899 Other long term (current) drug therapy
CPT/HCPCS: 99283; 73502; 96372; J1885